=== PATIENT | female | born 1960 | race Asian ===

== ENCOUNTER 2017-09-11 21:08 | Emergency (ER) | payer BC ==
[~2017-09-11] VITALS: Ht 165.1 cm; Wt 62.1 kg
[2017-09-11 21:11] VITALS: Ht 165.1 cm; Wt 62.1 kg
[2017-09-11 22:23] VITALS: BP 122/79
== END 2017-09-11 22:22 | disposition home or self-care (01) ==
LOC: ED 21:08
DX: R04.0 Epistaxis (principal); I10 Essential (primary) hypertension; E11.9 Type 2 diabetes mellitus without complications; Z85.3 Personal history of malignant neoplasm of breast